=== PATIENT | female | born 1975 | race Caucasian/White ===

== ENCOUNTER 2024-03-19 08:28 | Outpatient (CLI) | payer OTHER, SELFPAY ==
[2024-03-21 11:51] LABS: HPV Source Cervical/Vag; HPV, High Risk by TMA Detected
[2024-03-21 21:20] LABS: HPV Genotype 16 by TMA Not Detected; HPV Genotype 18/45 by TMA Not Detected; HPVG Source Cervical/Vag
== END 2024-03-19 08:29 | disposition home or self-care (01) ==
PROVIDERS: PCP Physician Assistant Medical; Visit Provider Physician Assistant Medical
DX: Z00.00 Encounter for general adult medical examination without abnormal findings (principal); I10 Essential (primary) hypertension; F41.9 Anxiety disorder, unspecified; F32.A Depression, unspecified; Z86.73 Personal history of transient ischemic attack (TIA), and cerebral infarction without residual deficits; Z13.6 Encounter for screening for cardiovascular disorders; Z11.59 Encounter for screening for other viral diseases
CPT/HCPCS: 80053; 80061; 84443; 87624; 87625; 88141; 88142